=== PATIENT | male | born 1990 | race Caucasian/White ===

== ENCOUNTER → 2020-07-30 | Outpatient (CLI) | payer OTHER ==
[~2020-07-30] MED LIST: CLEOCIN HCL300 MG PO
[2020-07-30 11:13] LABS: HEMOGLOBIN 15.3 gm/dl (14.0-17.5); RED BLOOD COUNT 5.17 M/UL (4.20-5.50); WHITE BLOOD COUNT 9.3 K/UL (4.5-11.0)
[2020-07-30 11:35] LABS: BUN/CREATININE RATIO 12 (0-10)
[2020-07-31 08:15] LABS: VITAMIN D, 25-HYDROXY 24.7 ng/mL (30.0-100.0)
[2020-07-31 09:15] LABS: FSH, SERUM 4.3 mIU/mL (1.5-12.4)
[2020-08-02 10:14] LABS: TESTOSTERONE, SERUM 568 ng/dL (264-916)
== END ==
LOC: LAB 10:41
PROVIDERS: Nurse Practitioner Family
DX: I10 Essential (primary) hypertension (principal); R53.83 Other fatigue; R53.81 Other malaise
CPT/HCPCS: 36415; 80053; 80061; 82043; 82607; 83001; 83002; 84402; 84403; 84443; 85027; 86140

== ENCOUNTER 2020-08-11 14:37 | Emergency (ER) | payer OTHER ==
[2020-08-11] MEDS ORDERED: CLEOCIN HCL300 MG PO (17:38)
== END 2020-08-11 17:40 | disposition home or self-care (01) ==
LOC: ER1 14:37
DX: L03.116 Cellulitis of left lower limb (principal); L03.115 Cellulitis of right lower limb; I10 Essential (primary) hypertension
CPT/HCPCS: 87070; 87205; 99283